=== PATIENT | female | born 1965 | race Caucasian/White ===

== ENCOUNTER → 2016-11-20 | Outpatient (CLI) | payer OTHER | LOC: FIMAGING 08:13 | PROVIDERS: ATTEND Obstetrics & Gynecology | DX: Z12.31 Encounter for screening mammogram for malignant neoplasm of breast (principal); Z79.890 Hormone replacement therapy | CPT/HCPCS: G0202 ==

== ENCOUNTER → 2017-11-06 | Outpatient (CLI) | payer OTHER | LOC: FIMAGING 10:06 | PROVIDERS: ATTEND Family Medicine | DX: R07.81 Pleurodynia (principal) ==

== ENCOUNTER → 2017-11-26 | Outpatient (CLI) | payer OTHER | LOC: FIMAGING 10:21 | PROVIDERS: ATTEND Obstetrics & Gynecology | DX: Z12.31 Encounter for screening mammogram for malignant neoplasm of breast (principal) ==

== ENCOUNTER → 2018-06-28 | Outpatient (CLI) | payer OTHER | LOC: FIMAGING 09:31 | PROVIDERS: ATTEND Obstetrics & Gynecology | DX: Z13.820 Encounter for screening for osteoporosis (principal); M85.89 Other specified disorders of bone density and structure, multiple sites; Z87.81 Personal history of (healed) traumatic fracture; Z78.0 Asymptomatic menopausal state ==